=== PATIENT | male | born 1950 | race Caucasian/White ===

== ENCOUNTER 2016-09-17 10:06 | Outpatient (CLI) | payer BC, MEDICARE | END 2016-09-17 10:07 | disposition home or self-care (01) | DX: K21.9 Gastro-esophageal reflux disease without esophagitis (principal) ==

== ENCOUNTER 2016-09-17 10:13 | Outpatient (CLI) | payer MEDICARE, BC | END 2016-09-17 10:14 | disposition home or self-care (01) | DX: E78.5 Hyperlipidemia, unspecified (principal); Z79.899 Other long term (current) drug therapy; Z12.5 Encounter for screening for malignant neoplasm of prostate; K21.9 Gastro-esophageal reflux disease without esophagitis | CPT/HCPCS: 36415; 80053; 80061; 84443; 85025; G0103 ==

== ENCOUNTER 2016-09-29 11:00 | Outpatient (CLI) | payer MEDICARE, BC | END 2016-09-29 11:01 | disposition home or self-care (01) | DX: G47.8 Other sleep disorders (principal); R51 Headache; R06.83 Snoring; K21.9 Gastro-esophageal reflux disease without esophagitis | CPT/HCPCS: 99203; G0463 ==

== ENCOUNTER 2016-10-19 19:21 | Outpatient (CLI) | payer MEDICARE, BC | END 2016-10-19 19:22 | disposition home or self-care (01) | DX: G47.33 Obstructive sleep apnea (adult) (pediatric) (principal); G47.61 Periodic limb movement disorder; Z68.27 Body mass index [BMI] 27.0-27.9, adult ==

== ENCOUNTER 2016-10-28 11:25 | Outpatient (CLI) | payer MEDICARE, BC | END 2016-10-28 11:26 | disposition home or self-care (01) | DX: G47.33 Obstructive sleep apnea (adult) (pediatric) (principal) | CPT/HCPCS: 99213; G0463 ==

== ENCOUNTER 2016-12-12 08:00 | Outpatient (CLI) | payer MEDICARE, BC | END 2016-12-12 23:59 | DX: K58.9 Irritable bowel syndrome, unspecified (principal) ==

== ENCOUNTER 2017-01-05 08:11 | Outpatient (CLI) | payer MEDICARE, BC ==
[2017-01-05] MEDS ORDERED: IOPAMIDOL-300 50 ML VIAL PO ONE (09:30)
[2017-01-05] MEDS ORDERED: IOPAMIDOL-300 100 ML VIAL IVP ONE (09:47)
== END 2017-01-05 08:12 | disposition home or self-care (01) ==
DX: K57.32 Diverticulitis of large intestine without perforation or abscess without bleeding (principal)
CPT/HCPCS: 36415; 74177; 82565; 84520; Q9967

== ENCOUNTER 2017-06-29 11:00 | Outpatient (CLI) | payer MEDICARE, BC | END 2017-06-29 11:01 | disposition home or self-care (01) | LOC: LAB.R 11:00 | PROVIDERS: ATTEND Family Medicine | DX: R30.0 Dysuria (principal) | CPT/HCPCS: 87086 ==

== ENCOUNTER → 2017-07-27 | Outpatient (CLI) | payer MEDICARE, BC | LOC: LAB.WCP 08:00 | PROVIDERS: ATTEND Family Medicine | DX: R30.0 Dysuria (principal) | CPT/HCPCS: 87086 ==

== ENCOUNTER 2017-08-20 15:43 | Outpatient (CLI) | payer MEDICARE, BC ==
[2017-08-20 14:11] LABS: BASOPHILS % (AUTO) 0.5 %; EOSINOPHILS # (AUTO) 0.1 10^3/uL (0.0-0.7); EOSINOPHILS % (AUTO) 2.3 %; HCT - HEMATOCRIT 45.8 % (42.0-52.0); HGB - HEMOGLOBIN 15.4 g/dL (14.0-18.0); LYMPHOCYTES # (AUTO) 2.7 10^3/uL (1.5-3.5); LYMPHOCYTES % (AUTO) 41.7 %; MEAN CORPUSCULAR HEMOGLOBIN 30.2 pg (27.0-31.0); MEAN CORPUSCULAR HGB CONC 33.6 g/dL (32.0-36.0); MEAN CORPUSCULAR VOLUME 89.7 fL (80.0-94.0); MEAN PLATELET VOLUME 8.2 fL (7.4-11.4); MONOCYTES # (AUTO) 0.5 10^3/uL (0.0-1.0); MONOCYTES % (AUTO) 7.8 %; NEUTROPHILS # (AUTO) 3.1 10^3/uL (1.5-6.6); NEUTROPHILS % (AUTO) 47.7 %; NUCLEATED RED BLOOD CELLS AUTO 0.1 /100WBC; RED CELL DISTRIBUTION WIDTH 14.1 % (12.0-15.0); UNCORRECTED WHITE BLOOD COUNT 6.4 x10^3/uL; WHITE BLOOD COUNT 6.4 x10^3/uL (4.8-10.8)
[2017-08-20 14:43] LABS: CHOL/HDL RATIO 4.9 (<5.0); CHOLESTEROL 228 mg/dL; HDL CHOLESTEROL 47 mg/dL; LDL/HDL RATIO 3.3 (<3.6); TRIGLYCERIDES 120 mg/dL; VLDL CHOLESTEROL 24 mg/dL
== END 2017-08-20 15:44 | disposition home or self-care (01) ==
LOC: LAB.WCP 15:43
PROVIDERS: ATTEND Family Medicine
DX: E78.5 Hyperlipidemia, unspecified (principal); Z12.5 Encounter for screening for malignant neoplasm of prostate; R03.0 Elevated blood-pressure reading, without diagnosis of hypertension
CPT/HCPCS: 36415; 80061; 85025; G0103; 84153

== ENCOUNTER 2018-05-05 07:05 | Outpatient (CLI) | payer BC, MEDICARE ==
[2018-05-05 12:22] LABS: BUN - BLOOD UREA NITROGEN 25 mg/dL (6-20); CALCIUM 8.8 mg/dL (8.5-10.3); CARBON DIOXIDE - CO2 27 mmol/L (21-32); CHLORIDE 105 mmol/L (101-111); CHOL/HDL RATIO 5.8 (<5.0); CHOLESTEROL 213 mg/dL; CREATININE 1.1 mg/dL (0.6-1.2); GFR - MDRD 67 (>89); GLUCOSE 82 mg/dL (70-100); HDL CHOLESTEROL 37 mg/dL; LDL CHOLESTEROL,CALCULATED 133 mg/dL; LDL/HDL RATIO 3.6 (<3.6); SODIUM 139 mmol/L (135-145); VLDL CHOLESTEROL 43 mg/dL
== END 2018-05-05 07:06 | disposition home or self-care (01) ==
LOC: LAB.WCP 07:05
PROVIDERS: ATTEND Family Medicine
DX: R73.01 Impaired fasting glucose (principal); E78.5 Hyperlipidemia, unspecified; R03.0 Elevated blood-pressure reading, without diagnosis of hypertension
CPT/HCPCS: 36415; 80048; 80061; 83721

== ENCOUNTER 2018-05-17 11:29 | Outpatient (CLI) | payer MEDICARE, OTHER ==
[2018-05-17] MEDS ORDERED: IOPAMIDOL-300 100 ML VIAL ONE (11:58)
--- NOTE | 2018-05-17 13:49 | CT Report ---
Reason: R ILIAC ARTERY DILATION ON LIFE SCREENING Procedure Date: 05/17/2018 Accession Number: [id number] / [id number] Procedure: CT - Abdomen/Pelvis Angio CPT Code: FULL RESULT: EXAM: CT ANGIOGRAM ABDOMEN AND PELVIS WITH CONTRAST EXAM DATE: 05/17/2018 01:01 PM. CLINICAL HISTORY: R ILIAC ARTERY DILATION ON LIFE SCREENING. COMPARISONS: Abdomen pelvis CT 01/05/2017. TECHNIQUE: Routine helical CT angiogram imaging was performed through the abdomen and pelvis in the arterial phase. IV contrast: ISOVUE 300 100mL. Enteric contrast: No. Reconstructions: Coronal and sagittal. MIP coronal and sagittal. In accordance with CT protocol optimization, one or more of the following dose reduction techniques were utilized for this exam: automated exposure control, adjustment of mA and/or KV based on patient size, or use of iterative reconstructive technique. FINDINGS: Vasculature: The right common iliac artery measures up to 2.3 cm in diameter, series 4 image 148. Lung Bases: Right hilar lymph nodes measure up to 1.3 cm in short axis. Abdominal Solid Organs: Left renal cortical cysts measure up to 2.0 cm, previously 1.7 cm. The liver, spleen, pancreas, adrenal glands, gallbladder and kidneys appear otherwise normal in size and demonstrate no masses or abnormal enhancement. Peritoneal Cavity: no free fluid, free air, or acute inflammatory process. There are multiple colon diverticula without evidence of diverticulitis. Pelvic Organs: The bladder and visualized pelvic organs appear within normal limits. Bones: No bone lesions. 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 Follow-up is recommended. Right hilar lymph nodes are nonspecific. RADIA
[2018-05-17] MEDS ORDERED: IOPAMIDOL-300 100 ML VIAL IVP ONE (15:16)
[2018-05-17] MEDS ORDERED: IOPAMIDOL-300 50 ML VIAL PO ONE (15:16)
== END 2018-05-17 11:30 | disposition home or self-care (01) ==
LOC: DI 11:29
PROVIDERS: ATTEND Family Medicine
DX: R93.5 Abnormal findings on diagnostic imaging of other abdominal regions, including retroperitoneum (principal); I72.3 Aneurysm of iliac artery
CPT/HCPCS: 74174; Q9967

== ENCOUNTER 2018-07-21 10:33 | Emergency (ER) | payer MEDICARE, OTHER ==
[2018-07-21 11:04] LABS: HGB - HEMOGLOBIN 15.3 g/dL (14.0-18.0); MEAN CORPUSCULAR HEMOGLOBIN 30.7 pg (27.0-31.0); MEAN CORPUSCULAR HGB CONC 33.6 g/dL (32.0-36.0); MEAN CORPUSCULAR VOLUME 91.4 fL (80.0-94.0); MEAN PLATELET VOLUME 7.4 fL (7.4-11.4); RED BLOOD COUNT 4.99 10^6/uL (4.70-6.10); RED CELL DISTRIBUTION WIDTH 13.7 % (12.0-15.0); WHITE BLOOD COUNT 6.6 x10^3/uL (4.8-10.8)
[2018-07-21 11:15] LABS: ALBUMIN 4.3 g/dL (3.2-5.5); ALBUMIN/GLOBULIN RATIO 1.3 (1.0-2.2); CALCIUM 8.9 mg/dL (8.5-10.3); CREATININE 1.1 mg/dL (0.6-1.2); TOTAL PROTEIN 7.7 g/dL (6.7-8.2)
[2018-07-21 11:18] LABS: PT - PROTHROMBIN TIME 11.5 secs (9.9-12.6)
--- NOTE | 2018-07-21 12:48 | ED Physician Documentation ---
PD HPI GI BLEED - Stated complaint Stated Complaint: BLOOD IN STOOL - Chief complaint Chief Complaint: Cardiac - History obtained from History obtained from: Patient - History of Present Illness Timing - onset: Yesterday Timing - duration: Days (2) Timing - details: Abrupt onset, Still present Associated symptoms: BRBPR Contributing factors: Bad food. No: Sick contact Improved by: BM Similar symptoms before: Has not had sx before Recently seen: Clinic - Additional information Additional information: 67-year-old previously well male has developed bright red blood per rectum beginning yesterday morning. Denies any pain, he does have a prior history of hemorrhoids and has gone into the see his doctor about this. He was examined he was found to have no issue with hemorrhoids this morning and was sent to the emergency department for evaluation. The patient states that he did eat some lasagna that was provided by a neighbor and he felt that after that his stomach was a bit upset and he developed some soft stool. He did note the blood on top of the soft stool. He denies any fever or chills associated with this denies any lightheadedness or dizziness. Review of Systems Constitutional: denies: Fever Eyes: denies: Decreased vision Ears: denies: Ear pain Nose: denies: Congestion Throat: denies: Sore throat Cardiac: denies: Chest pain / pressure, Palpitations Respiratory: denies: Dyspnea, Cough GI: reports: Bloody / black stool. denies: Abdominal Pain, Nausea, Vomiting, Constipation, Diarrhea, Hematemesis : denies: Dysuria, Frequency PD PAST MEDICAL HISTORY - Past Medical History Cardiovascular: None Respiratory: None Endocrine/Autoimmune: None GI: GERD : None Psych: Claustrophobia Musculoskeletal: None Other Past Medical History: Myasthenia gravis - Past Surgical History Past Surgical History: Yes General: Colonoscopy - Present Medications Home Medications: Ambulatory Orders Medication Instructions Recorded Confirmed Prednisone 5 mg PO DAILY 10/22/15 07/13/17 Omeprazole [PriLOSEC] 20 mg PO DAILY 07/10/17 07/13/17 - Allergies Allergies/Adverse Reactions: Allergies Allergy/AdvReac Type Severity Reaction Status Date / Time indomethacin Allergy Mild Hives Verified 07/10/17 10:12 sulfamethoxazole Allergy Rash Verified 07/10/17 10:12 [From Bactrim] trimethoprim [From Bactrim] Allergy Rash Verified 07/10/17 10:12 - Social History Does the pt smoke?: No Smoking Status: Never smoker Does the pt drink ETOH?: No Does the pt have substance abuse?: No - Immunizations Immunizations are current?: Yes - POLST Patient has POLST: No PD ED PE NORMAL - Vitals Vital signs reviewed: Yes (hypertensive ) - General General: Alert and oriented X 3, No acute distress, Well developed/nourished - HEENT HEENT: Atraumatic, PERRL, EOMI - Neck Neck: Supple, no meningeal sign - Cardiac Cardiac: RRR, No murmur - Respiratory Respiratory: No respiratory distress, Clear bilaterally - Abdomen Abdomen: Soft, Non tender - Back Back: No CVA TTP, No spinal TTP - Derm Derm: Normal color, Warm and dry, No rash - Extremities Extremities: No deformity, No edema - Neuro Neuro: Alert and oriented X 3, under ground miner 2-12 intact, No motor deficit, No sensory deficit, Normal speech Eye Opening: Spontaneous Motor: Obeys Commands Verbal: Oriented GCS Score: 15 - Psych Psych: Normal mood, Normal affect Results - Vitals Vitals: Vital Signs - 24 hr 07/21/18 07/21/18 10:50 13:38 Temperature 36.8 C Heart Rate 73 74 Respiratory 18 18 Rate Blood Pressure 136/94 H 124/74 O2 Saturation 95 99 Oxygen O2 Source Room air - Labs Labs: Microbiology 07/21/18 12:54 Campylobacter Antigen Assay - Final Stool Laboratory Tests 07/21/18 07/21/18 07/21/18 10:55 10:55 10:55 WBC 6.6 RBC 4.99 Hgb 15.3 Hct 45.6 MCV 91.4 MCH 30.7 MCHC 33.6 RDW 13.7 Plt Count 234 MPV 7.4 PT INR APTT 28.0 Sodium 140 Potassium 3.8 Chloride 105 Carbon Dioxide 27 Anion Gap 8.0 BUN 16 Creatinine 1.1 Estimated GFR (MDRD) 67 L Glucose 104 H Calcium 8.9 Total Bilirubin 1.0 AST 21 ALT 22 Alkaline Phosphatase 57 Total Protein 7.7 Albumin 4.3 Globulin 3.4 Albumin/Globulin Ratio 1.3 Lipase 27 Blood Type Blood Type Recheck Antibody Screen 07/21/18 07/21/18 07/21/18 10:55 10:55 11:20 WBC RBC Hgb Hct MCV MCH MCHC RDW Plt Count MPV PT 11.5 INR 1.0 APTT Sodium Potassium Chloride Carbon Dioxide Anion Gap BUN Creatinine Estimated GFR (MDRD) Glucose Calcium Total Bilirubin AST ALT Alkaline Phosphatase Total Protein Albumin Globulin Albumin/Globulin Ratio Lipase Blood Type O POSITIVE Blood Type Recheck O POSITIVE Antibody Screen NEGATIVE PD MEDICAL DECISION MAKING - ED course Complexity details: reviewed results, re-evaluated patient, considered differential, d/w patient ED course: 67-year-old male with a soft stool and blood per rectum without evidence of hemorrhoids has no specific pain to palpation of the abdomen he has no fever he has normal white blood cell count and normal blood counts. He is able to produce a specimen for use and it is negative for campy and is being cultured. I discussed results with the patient and he feels well would like to wait out the results. Departure - Departure Disposition: 01 Home, Self Care Clinical Impression: Rectal bleeding Condition: Stable Instructions: ED Hematochezia Stable Follow-Up: Albaro Mcnamara MD [Primary Care Provider] -
[2018-07-21 13:40] VITALS: BP 124/74
== END 2018-07-21 15:40 | disposition home or self-care (01) ==
LOC: ED 10:33
DX: K62.5 Hemorrhage of anus and rectum (principal)
CPT/HCPCS: 80053; 83690; 85027; 85610; 85730; 86850; 86900; 86901; 87045; 87046; 99283

== ENCOUNTER 2019-05-03 07:43 | Outpatient (CLI) | payer MEDICARE, OTHER ==
[2019-05-03 12:39] LABS: BASOPHILS % (AUTO) 0.4 %; EOSINOPHILS # (AUTO) 0.2 10^3/uL (0.0-0.7); EOSINOPHILS % (AUTO) 2.3 %; HGB - HEMOGLOBIN 15.5 g/dL (14.0-18.0); LYMPHOCYTES # (AUTO) 2.3 10^3/uL (1.5-3.5); LYMPHOCYTES % (AUTO) 31.7 %; MEAN CORPUSCULAR HEMOGLOBIN 30.9 pg (27.0-31.0); MEAN CORPUSCULAR HGB CONC 32.4 g/dL (32.0-36.0); MEAN CORPUSCULAR VOLUME 95.4 fL (80.0-94.0); MEAN PLATELET VOLUME 9.9 fL (7.4-11.4); MONOCYTES # (AUTO) 0.6 10^3/uL (0.0-1.0); MONOCYTES % (AUTO) 7.9 %; NEUTROPHILS # (AUTO) 4.2 10^3/uL (1.5-6.6); NEUTROPHILS % (AUTO) 57.4 %; PLT - PLATELET COUNT 246 10^3/uL (130-450); RED BLOOD COUNT 5.02 10^6/uL (4.70-6.10); RED CELL DISTRIBUTION WIDTH 13.2 % (12.0-15.0); WHITE BLOOD COUNT 7.3 x10^3/uL (4.8-10.8)
[2019-05-03 13:06] LABS: ALBUMIN/GLOBULIN RATIO 1.3 (1.0-2.2); ALKALINE PHOSPHATASE 51 IU/L (42-121); ALT ALANINE AMINOTRANSFERASE 27 IU/L (10-60); AST ASPARTATE AMINOTRANSFERASE 24 IU/L (10-42); BUN - BLOOD UREA NITROGEN 21 mg/dL (6-20); CALCIUM 8.8 mg/dL (8.5-10.3); CARBON DIOXIDE - CO2 29 mmol/L (21-32); CHLORIDE 108 mmol/L (101-111); CHOL/HDL RATIO 5.1 (<5.0); CHOLESTEROL 220 mg/dL; GFR - MDRD 75 (>89); GLUCOSE 99 mg/dL (70-100); HDL CHOLESTEROL 43 mg/dL; LDL CHOLESTEROL,CALCULATED 157 mg/dL; LDL/HDL RATIO 3.7 (<3.6); SODIUM 142 mmol/L (135-145); TOTAL PROTEIN 7.2 g/dL (6.7-8.2); VLDL CHOLESTEROL 20 mg/dL
== END 2019-05-03 23:59 | disposition home or self-care (01) ==
LOC: LAB.WCP 07:43
PROVIDERS: ATTEND Family Medicine
DX: R73.01 Impaired fasting glucose (principal); E78.5 Hyperlipidemia, unspecified; Z12.5 Encounter for screening for malignant neoplasm of prostate; R00.2 Palpitations; K21.9 Gastro-esophageal reflux disease without esophagitis
CPT/HCPCS: 36415; 80061; G0103; 80053; 83721; 84153; 84443; 85025

== ENCOUNTER 2019-06-23 14:26 | Outpatient (CLI) | payer MEDICARE, OTHER | END 2019-06-23 14:27 | disposition home or self-care (01) | LOC: RT 14:26 | PROVIDERS: ATTEND Internal Medicine Cardiovascular Disease | DX: R00.2 Palpitations (principal) | CPT/HCPCS: 93005 ==

== ENCOUNTER 2020-05-28 07:11 | Outpatient (CLI) | payer MEDICARE, OTHER ==
[2020-05-28 12:07] LABS: BASOPHILS # (AUTO) 0.1 10^3/uL (0.0-0.1); BASOPHILS % (AUTO) 0.8 %; EOSINOPHILS # (AUTO) 0.2 10^3/uL (0.0-0.7); EOSINOPHILS % (AUTO) 2.5 %; HGB - HEMOGLOBIN 15.7 g/dL (14.0-18.0); LYMPHOCYTES # (AUTO) 2.8 10^3/uL (1.5-3.5); LYMPHOCYTES % (AUTO) 34.9 %; MEAN CORPUSCULAR HEMOGLOBIN 30.3 pg (27.0-31.0); MEAN CORPUSCULAR HGB CONC 31.7 g/dL (32.0-36.0); MEAN CORPUSCULAR VOLUME 95.6 fL (80.0-94.0); MEAN PLATELET VOLUME 9.9 fL (7.4-11.4); MONOCYTES # (AUTO) 0.7 10^3/uL (0.0-1.0); MONOCYTES % (AUTO) 8.2 %; NEUTROPHILS # (AUTO) 4.2 10^3/uL (1.5-6.6); NEUTROPHILS % (AUTO) 53.2 %; PLT - PLATELET COUNT 238 10^3/uL (130-450); RED BLOOD COUNT 5.18 10^6/uL (4.70-6.10); RED CELL DISTRIBUTION WIDTH 13.2 % (12.0-15.0); WHITE BLOOD COUNT 7.9 x10^3/uL (4.8-10.8)
[2020-05-28 12:21] LABS: ALBUMIN 4.2 g/dL (3.2-5.5); ALBUMIN/GLOBULIN RATIO 1.5 (1.0-2.2); ALKALINE PHOSPHATASE 59 IU/L (42-121); ALT ALANINE AMINOTRANSFERASE 21 IU/L (10-60); AST ASPARTATE AMINOTRANSFERASE 18 IU/L (10-42); BUN - BLOOD UREA NITROGEN 26 mg/dL (6-20); CALCIUM 8.9 mg/dL (8.5-10.3); CARBON DIOXIDE - CO2 26 mmol/L (21-32); CHLORIDE 108 mmol/L (101-111); CHOL/HDL RATIO 4.7 (<5.0); CHOLESTEROL 206 mg/dL; CREATININE 1.1 mg/dL (0.6-1.2); GLUCOSE 102 mg/dL (70-100); HDL CHOLESTEROL 44 mg/dL; LDL CHOLESTEROL,CALCULATED 134 mg/dL; SODIUM 142 mmol/L (135-145); VLDL CHOLESTEROL 28 mg/dL
== END 2020-05-28 23:59 | disposition home or self-care (01) ==
LOC: LAB.WCP 07:11
PROVIDERS: ATTEND Family Medicine
DX: G70.00 Myasthenia gravis without (acute) exacerbation (principal); R00.2 Palpitations; E78.5 Hyperlipidemia, unspecified; Z12.5 Encounter for screening for malignant neoplasm of prostate
CPT/HCPCS: 36415; 80053; 80061; 84443; 85025; G0103; 83721; 84153

== ENCOUNTER 2021-06-17 09:21 | Outpatient (CLI) | payer MEDICARE, OTHER ==
[2021-06-17 11:39] LABS: BASOPHILS # (AUTO) 0.1 10^3/uL (0.0-0.1); BASOPHILS % (AUTO) 0.8 %; EOSINOPHILS # (AUTO) 0.3 10^3/uL (0.0-0.7); EOSINOPHILS % (AUTO) 4.1 %; HCT - HEMATOCRIT 49.4 % (42.0-52.0); HGB - HEMOGLOBIN 15.8 g/dL (14.0-18.0); LYMPHOCYTES # (AUTO) 2.3 10^3/uL (1.5-3.5); LYMPHOCYTES % (AUTO) 30.6 %; MEAN CORPUSCULAR HEMOGLOBIN 30.2 pg (27.0-31.0); MEAN CORPUSCULAR VOLUME 94.5 fL (80.0-94.0); MEAN PLATELET VOLUME 9.8 fL (7.4-11.4); MONOCYTES # (AUTO) 0.5 10^3/uL (0.0-1.0); MONOCYTES % (AUTO) 6.6 %; NEUTROPHILS # (AUTO) 4.3 10^3/uL (1.5-6.6); NEUTROPHILS % (AUTO) 57.8 %; PLT - PLATELET COUNT 260 10^3/uL (130-450); RED BLOOD COUNT 5.23 10^6/uL (4.70-6.10); RED CELL DISTRIBUTION WIDTH 13.1 % (12.0-15.0); WHITE BLOOD COUNT 7.4 x10^3/uL (4.8-10.8)
[2021-06-17 12:01] LABS: ESTIMATED AVERAGE GLUCOSE 105 mg/dL (70-100); HEMOGLOBIN A1c% 5.3 % (4.27-6.07)
[2021-06-17 12:04] LABS: ALBUMIN 4.3 g/dL (3.2-5.5); ALBUMIN/GLOBULIN RATIO 1.4 (1.0-2.2); ALKALINE PHOSPHATASE 61 IU/L (42-121); ALT ALANINE AMINOTRANSFERASE 25 IU/L (10-60); AST ASPARTATE AMINOTRANSFERASE 20 IU/L (10-42); BILIRUBIN,TOTAL 0.9 mg/dL (0.2-1.0); BUN - BLOOD UREA NITROGEN 17 mg/dL (6-20); CALCIUM 9.2 mg/dL (8.5-10.3); CARBON DIOXIDE - CO2 28 mmol/L (21-32); CHLORIDE 103 mmol/L (101-111); CHOL/HDL RATIO 5.4 (<5.0); CHOLESTEROL 200 mg/dL; CREATININE 1.2 mg/dL (0.6-1.2); GFR - MDRD 60 (>89); GLUCOSE 101 mg/dL (70-100); HDL CHOLESTEROL 37 mg/dL; LDL CHOLESTEROL,CALCULATED 128 mg/dL; LDL/HDL RATIO 3.5 (<3.6); POTASSIUM 4.1 mmol/L (3.5-5.0); SODIUM 140 mmol/L (135-145); TOTAL PROTEIN 7.4 g/dL (6.7-8.2); TRIGLYCERIDES 175 mg/dL; VLDL CHOLESTEROL 35 mg/dL
[2021-06-17 12:14] LABS: THYROID STIMULATING HORMONE 1.1 uIU/mL (0.34-5.60)
== END 2021-06-17 23:59 | disposition home or self-care (01) ==
LOC: LAB.WCP 09:21
PROVIDERS: ATTEND Family Medicine
DX: E78.5 Hyperlipidemia, unspecified (principal); Z12.5 Encounter for screening for malignant neoplasm of prostate; R73.01 Impaired fasting glucose; K58.9 Irritable bowel syndrome, unspecified; K21.9 Gastro-esophageal reflux disease without esophagitis; G47.30 Sleep apnea, unspecified; G70.00 Myasthenia gravis without (acute) exacerbation
CPT/HCPCS: 36415; 80053; 80061; 83036; 84443; 85025; G0103; 83721; 84153

== ENCOUNTER 2021-08-13 11:27 | Observation (INO) | payer MEDICARE, OTHER ==
--- NOTE | 2021-08-13 12:37 | ED Physician Documentation ---
PD HPI FOCAL NEURO - Stated complaint Stated Complaint: LT EYE SAG/SLURRED SPEACH - Chief complaint Chief Complaint: Neuro - History obtained from History obtained from: Patient - History of Present Illness Timing - onset: Yesterday Timing - duration: Minutes (20) Timing - details: Abrupt onset Associated symptoms: No: Headache, Nausea / vomiting, Seizure, Syncope, Fall, Head injury, Chest pain, Neck pain, Back pain, Fever Baseline status: positive: A&OX3, ambulatory, indep Similar symptoms before: Diagnosis (Myasthenia gravis) - Additional information Additional information: Patient is a 71-year-old male who comes in to the emergency department stating that last night he had about 20 minutes of difficulty forming words. He states he is back to normal now. Today he felt like his left eyelid was drooping. This is similar to the past times that he has had myasthenia gravis. Had been on prednisone low-dose in the past for this. Not currently on it. The eyelid droop is now resolved. That lasted about 15 minutes. He had no other focal neurological issues. No numbness, weakness, tingling. No facial deformities. No difficulty walking. Patient is currently asymptomatic. No new medications or illnesses. Review of Systems Ten Systems: 10 systems reviewed and negative Constitutional: denies: Fever, Chills Eyes: denies: Loss of vision, Decreased vision, Photophobia, Irritation Ears: denies: Loss of hearing, Ear pain Nose: denies: Rhinorrhea / runny nose, Congestion Throat: denies: Sore throat Cardiac: denies: Chest pain / pressure, Palpitations Respiratory: denies: Dyspnea, Cough, Wheezing GI: denies: Abdominal Pain, Nausea, Vomiting, Diarrhea Skin: denies: Rash Musculoskeletal: denies: Neck pain, Back pain Neurologic: denies: Focal weakness, Numbness, Confused, Headache PD PAST MEDICAL HISTORY - Past Medical History Past Medical History: Yes Cardiovascular: None Respiratory: None Endocrine/Autoimmune: None GI: GERD : None Psych: Claustrophobia Musculoskeletal: None - Past Surgical History Past Surgical History: Yes General: Colonoscopy - Present Medications Home Medications: Ambulatory Orders Medication Instructions Recorded Confirmed predniSONE [Prednisone] 5 mg PO DAILY 10/22/15 07/13/17 Omeprazole [PriLOSEC] 20 mg PO DAILY 07/10/17 07/13/17 - Allergies Allergies/Adverse Reactions: Allergies Allergy/AdvReac Type Severity Reaction Status Date / Time indomethacin Allergy Mild Hives Verified 08/13/21 11:43 sulfamethoxazole Allergy Rash Verified 08/13/21 11:43 [From Bactrim] trimethoprim [From Bactrim] Allergy Rash Verified 08/13/21 11:43 - Social History Does the pt smoke?: No Smoking Status: Never smoker Does the pt drink ETOH?: No Does the pt have substance abuse?: No - Immunizations Immunizations are current?: Yes - POLST Patient has POLST: No PD ED PE NORMAL - Vitals Vital signs reviewed: Yes - General General: Alert and oriented X 3, No acute distress - HEENT HEENT: Atraumatic, PERRL, EOMI, Ears normal, Moist mucous membranes, Pharynx benign, Other (Facial exam performed with the patient looking in the mirror. Confirms that his facial movements are normal) - Neck Neck: Supple, no meningeal sign - Cardiac Cardiac: RRR, Strong equal pulses - Respiratory Respiratory: No respiratory distress, Clear bilaterally - Abdomen Abdomen: Soft, Non tender, Non distended - Back Back: No spinal TTP - Derm Derm: Warm and dry - Extremities Extremities: No edema - Neuro Neuro: Alert and oriented X 3, visualization developer 2-12 intact, No motor deficit, No sensory deficit, Normal speech Eye Opening: Spontaneous Motor: Obeys Commands Verbal: Oriented GCS Score: 15 - Psych Psych: Normal mood, Normal affect NIHSS - Time Time: 12:35 - Level of Consciousness Level of consciousness: (0) Alert, Keenly responsive LOC Questions: (0) Answers both Q's correct LOC Commands: (0) Performs both correctly - Gaze Best Gaze: (0) Normal - Visual Visual: (0) No loss - Facial Palsy Facial Palsy: (0) Normal, symmetrical movement - Motor Arms (both separate) Motor Arm (right): (0) No drift Motor Arm (left): (0) No drift - Motor Legs (both separate) Motor Leg (right): (0) No drift Motor Leg (left): (0) No drift - Limb Ataxia Limb Ataxia: (0) Absent - Sensory Sensory: (0) Normal - Best Language Best Language: (0) No aphasia - Dysarthria Dysarthria: (0) Normal - Extinction and Inattention (formally neg Extinction and inattention: (0) No abnormality - Total Score/Results Total Score/Result: 0 Results - Vitals Vitals: Vital Signs - 24 hr 08/13/21 11:37 Temperature 36.3 C L Heart Rate 78 Respiratory 17 Rate Blood Pressure 148/90 H O2 Saturation 99 Oxygen O2 Source Room air - EKG (time done) 1238 Rate: Rate (enter#) (68) Rhythm: NSR [place]: Normal Intervals: Normal [place] QRS: Normal Ischemia: Normal ST segments - Labs Labs: Laboratory Tests 08/13/21 08/13/21 12:48 12:48 WBC 7.5 RBC 5.01 Hgb 15.4 Hct 46.4 MCV 92.6 MCH 30.7 MCHC 33.2 RDW 12.9 Plt Count 224 MPV 9.1 Neut # (Auto) 5.3 Lymph # (Auto) 1.4 L [place] # (Auto) 0.5 Eos # (Auto) 0.2 Baso # (Auto) 0.1 Absolute Nucleated RBC 0.00 Nucleated RBC % 0.0 Sodium 138 Potassium 4.0 Chloride 103 Carbon Dioxide 26 Anion Gap 9.0 BUN 17 Creatinine 1.1 Estimated GFR (MDRD) 66 L Glucose 87 Calcium 9.0 Total Bilirubin 0.8 AST 19 ALT 26 Alkaline Phosphatase 62 Total Protein 7.1 Albumin 4.1 Globulin 3.0 Albumin/Globulin Ratio 1.4 Lipase 33 - Rads (name of study) CT angio head Radiology: Final report received, EMP read contemporaneously, See rad report (No acute abnormality) CT angio neck Radiology: Final report received, EMP read contemporaneously, See rad report (No acute abnormality) PD MEDICAL DECISION MAKING - ED course Complexity details: reviewed results, re-evaluated patient, considered differential, d/w patient, d/w organizational consultant ED course: Patient is a 71-year-old male with difficulty forming words that lasted about 20 minutes last night. Concern for TIA. Negative CT angiogram head and neck. ABCD2 score is 4. Asymptomatic here. Given aspirin. We will place the patient in observation for the remainder of the TIA work-up. ABCD 2 score puts him as a moderate risk patient. Discussed the case with Dr. Arias, hospitalist accepts This document was made in part using voice recognition software. While efforts are made to proofread this document, sound alike and grammatical errors may occur. Departure - Departure Disposition: ED Place in Observation Clinical Impression: TIA (transient ischemic attack) Condition: Stable Discharge Date/Time: 08/13/21 15:50
[2021-08-13] MEDS ORDERED: IOPAMIDOL-300 100 ML VIAL ONE (12:44)
[2021-08-13 12:52] LABS: BASOPHILS # (AUTO) 0.1 10^3/uL (0.0-0.1); BASOPHILS % (AUTO) 0.7 %; EOSINOPHILS # (AUTO) 0.2 10^3/uL (0.0-0.7); EOSINOPHILS % (AUTO) 2.8 %; HCT - HEMATOCRIT 46.4 % (42.0-52.0); HGB - HEMOGLOBIN 15.4 g/dL (14.0-18.0); LYMPHOCYTES # (AUTO) 1.4 10^3/uL (1.5-3.5); MEAN CORPUSCULAR HEMOGLOBIN 30.7 pg (27.0-31.0); MEAN CORPUSCULAR HGB CONC 33.2 g/dL (32.0-36.0); MEAN CORPUSCULAR VOLUME 92.6 fL (80.0-94.0); MEAN PLATELET VOLUME 9.1 fL (7.4-11.4); MONOCYTES # (AUTO) 0.5 10^3/uL (0.0-1.0); MONOCYTES % (AUTO) 6.9 %; NEUTROPHILS # (AUTO) 5.3 10^3/uL (1.5-6.6); NEUTROPHILS % (AUTO) 70.2 %; PLT - PLATELET COUNT 224 10^3/uL (130-450); RED BLOOD COUNT 5.01 10^6/uL (4.70-6.10); RED CELL DISTRIBUTION WIDTH 12.9 % (12.0-15.0); WHITE BLOOD COUNT 7.5 x10^3/uL (4.8-10.8)
[2021-08-13 13:13] LABS: ALBUMIN 4.1 g/dL (3.2-5.5); ALBUMIN/GLOBULIN RATIO 1.4 (1.0-2.2); BILIRUBIN,TOTAL 0.8 mg/dL (0.2-1.0); CREATININE 1.1 mg/dL (0.6-1.2); TOTAL PROTEIN 7.1 g/dL (6.7-8.2)
--- NOTE | 2021-08-13 14:11 | CT Report ---
PROCEDURE: ANGIO NECK W INDICATIONS: L sided facial droop, speech difficulties CONTRAST: IV CONTRAST: Optiray 320 ml: 80 PO CONTRAST: *NO PO CONTRAST TECHNIQUE: After the administration of intravenous contrast, 1.5 mm axial sections acquired from the aortic arch to the [place] of [place]. Coronal 3-D maximum intensity projection (MIP) and/or volume rendering ref ormats were then performed. For radiation dose reduction, the following was used: automated exposur e control, adjustment of mA and/or kV according to patient size. COMPARISON: Correlation is made with the accompanying head CT angiogram, 08/13/2021. FINDINGS: Image quality: Excellent. Carotid system: The great vessels demonstrate a conventional anatomy as they arise from the aortic a rch. The origins of the common carotid arteries appear patent. The common carotid arteries demonstr ate normal calibers and courses. The bifurcation regions appear normal bilaterally. The internal ca rotid arteries demonstrate normal caliber and course. Posterior circulation: The origins of the vertebral arteries appear patent. The more superior porti ons of the vertebral arteries demonstrate normal course and caliber. They join to form a normal appe aring basilar artery. The left vertebral artery is dominant to the right. Soft tissues: Visualized neck soft tissues demonstrate no suspicious abnormalities. The thyroid is normal in size and there are no incidental findings. Bones: No suspicious bony lesions. Visualized cervical spine appears normally aligned. Moderate c ervical spine degenerative changes are seen. IMPRESSION: No hemodynamically significant stenosis can be seen within the arteries of the neck. The estimate of stenosis included in the report of the imaging study was calculated using the NASCET method Reviewed by: Mark Jackson MD on 08/13/2021 1:10 PM [place] Approved by: Mark Jackson MD on 08/13/2021 1:10 PM [facility] Station ID: [id number]
--- NOTE | 2021-08-13 14:14 | CT Report ---
PROCEDURE: ANGIO HEAD W/WO INDICATIONS: L sided facial droop, speech difficulties CONTRAST: IV CONTRAST: Optiray 320 ml: 80 PO CONTRAST: *NO PO CONTRAST TECHNIQUE: Precontrast 4.5 mm thick angled axial sections acquired from the foramen magnum to the vertex. Afte r the administration of intravenous contrast, 1 mm thick sections acquired through the [place] of [place] is. Postcontrast 4.5 mm thick sections then re-acquired from the foramen magnum to the vertex. 3-di mensional [id number] (MIP) and/or volume rendering reformats were acquired of the c entral intracranial vasculature. For radiation dose reduction, the following was used: automated ex posure control, adjustment of mA and/or kV according to patient size. COMPARISON: Correlation is made with the accompanying neck CT angiogram, 08/13/2021. Correlation is a lso made with the prior brain MRI, 10/06/2013. FINDINGS: Image quality: Excellent. Anterior circulation: Intracranial internal carotid arteries are normal in size and flow. The flow within the paired anterior cerebral arteries is normal and symmetric. The flow within the middle cer ebral arteries is normal and symmetric. The anterior communicating artery is seen. No aneurysms are seen. Posterior circulation: Visualized portions of the vertebral arteries demonstrate normal caliber, and join to form a normal appearing basilar artery. The left vertebral artery is dominant to the right. Flow within the posterior cerebral arteries is normal and symmetric. No aneurysms are seen. CSF spaces: Ventricles are normal in size and shape. Basal cisterns are patent. No extra-axial flu id collections. Brain: No midline shift. No intracranial bleeds or masses. Philippe-white matter interface appears int act. Skull and face: Calvarium and facial bones appear intact, without suspicious lesions. Sinuses: Mild mucosal thickening is seen within the right maxillary sinus and the ethmoid air cells, with milder mucosal thickening seen elsewhere. No significant abnormal fluid can be seen within the m astoid air cells or within the middle ear cavities. IMPRESSION: No significant intracranial abnormality is seen. No intracranial hemorrhage is seen. No significant intracranial arterial abnormalities are seen. Reviewed by: Mark Jackson MD on 08/13/2021 1:12 PM [facility] Approved by: Mark Jackson MD on 08/13/2021 1:12 PM [facility] Station ID: [id number]
[2021-08-13] MEDS ORDERED: ASPIRIN CHEW 81 MG TABLET PO STA (14:33)
[2021-08-13] MEDS ORDERED: ONDANSETRON ODT 4 MG TABLET TL PRN (15:09)
[2021-08-13] MEDS ORDERED: ACETAMINOPHEN 325 MG TABLET PO PRN (15:09)
[2021-08-13] MEDS ORDERED: ONDANSETRON 4 MG/2 ML VIAL IVP PRN (15:09)
[2021-08-13] MEDS ORDERED: SODIUM CHLORIDE FLUSH 0.9% 10 ML SYRINGE IVP PRN (15:09)
[2021-08-13] MEDS ORDERED: oxyCODONE 5 MG TABLET PO PRN (15:09)
[2021-08-13] MEDS ORDERED: ATORVASTATIN 40 MG TABLET PO STA (15:17)
--- NOTE | 2021-08-13 15:45 | HISTORY & PHYSICAL EXAMINATION ---
Chief Complaint - Chief Complaint Chief Complaint: Focal neuro deficit History of Present Illness - Admitted From Admitted From:: Home - History of Present Illness HPI Comment/Other: Antelmo is a 71 year old male with a history of hyperlipidemia and stable common iliac artery aneurysm who presents with focal neuro deficit and is being admitted for TIA observation. Last night he experienced roughly 20 minutes of verbal apraxia, which has since resolved. He also experienced what he described as eyelid drooping today, but this has also since resolved. He is currently asymptomatic. He had a bout of palpitations in 2007 in which a holter monitor study was performed that was essentially normal with occasional PVCs and PACs. He quit smoking cigarettes in 2016. His only risk factors for stroke are male gender and advanced age. His ABCD score was 4 in the ED, indicating a moderate risk for stroke. He also has a history of ocular myasthenia gravis, which was in remission after completing steroid therapy with prednisone. He is currently not taking Prednisone. His MONTY aneurysm was last evaluated via ultrasound in 07/2020, which showed no change since prior ultrasound. It is currently stable without symptoms. His GERD is currently well controlled on daily omeprazole. Could be attributed to his longstanding history of anxiety and insomnia. History - Past Medical History Cardiovascular: reports: High cholesterol, Other (Common iliac artery aneurysm ) Respiratory: reports: None Neuro: reports: Other (Ocular myasthenia gravis, Guillane-Wilmar Syndrome, ) Endocrine/Autoimmune: reports: None GI: reports: GERD, GI bleed (Bright red blood per rectum ), Colon polyps, Other (Diverticulosis) : reports: Other (Microscopic hematuria ) HEENT: reports: Chronic hearing loss, Other (Cataracts) Psych: reports: Anxiety, Claustrophobia, Other (Insomnia) Musculoskeletal: reports: Osteoarthritis MRSA Hx?: No Other Past Medical History: Positional obstructive sleep apnea - Past Surgical History General: reports: Colonoscopy Ortho: reports: Shoulder arthroplasty - Family & Social History Family History: Mother: (Dad in his 80s from neuro disease. Had hx of diabetes, hypertension and hyperlipidemia. Mother of old age in mid- 80s.), Father: , Sister: , Cancer (2 older sisters who have passed due to cancer) Family History Comment/Other: 1 adult son who lives in [facility] and works for the . 2 granddaughters who are healthy and living in [place]. Living arrangement: At home Living Situation: With spouse/s.o. Social History Notes: Quit smoking tobacco in 2016. No alcohol use. Occassional CBD use but no use currently. 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 - Substance History Use: Uses substance without health or social issues: Other (Quit smoking tobacco in 2016) - POLST Patient has POLST: No Meds/Allgy - Home Medications Home Medications: Ambulatory Orders Medication Instructions Recorded Confirmed predniSONE [Prednisone] 5 mg PO DAILY 10/22/15 07/13/17 Omeprazole [PriLOSEC] 20 mg PO DAILY 07/10/17 07/13/17 - Allergies Allergies/Adverse Reactions: Allergies Allergy/AdvReac Type Severity Reaction Status Date / Time indomethacin Allergy Mild Hives Verified 08/13/21 11:43 sulfamethoxazole Allergy Rash Verified 08/13/21 11:43 [From Bactrim] trimethoprim [From Bactrim] Allergy Rash Verified 08/13/21 11:43 Review of Systems - Constitutional Constitutional: denies: Fatigue, Fever, Chills, Weakness - Eyes Eyes: denies: Pain, Blurred vision, Vision loss, Dipolpia - Ears, Nose & Throat Ears, Nose & Throat: reports: Hearing loss, Hearing aids, Tinnitus, Nasal congestion. denies: Ear pain, Sore throat - Cardiovascular Cariovascular: denies: Palpitations, Chest pain, Syncope, Exertional dyspnea - Respiratory Respiratory: reports: Cough (Related to his chronic sinusitis). denies: Wheezing, Hemoptysis - Gastrointestinal Gastrointestinal: reports: Reflux/heartburn. denies: Abdominal pain, Constipation, Diarrhea, Black stools - Genitourinary Genitourinary: reports: Frequency, Urgency. denies: Dysuria, Hematuria - Musculoskeletal Musculoskeletal: denies: Muscle pain - Integumentary Integumentary: denies: Rash, Lesions - Neurological Neurological: denies: General weakness, Focal weakness, Headache, Numbness - Psychiatric Psychiatric: reports: Anxiety - All Other Systems All Other Systems: reports: Reviewed and negative Prior Level of Functionality: Lives independently with in their home. Ambulates without assistance. Full functionality. Exam - Vital Signs Reviewed Vital Signs: Yes Vital Signs: Vital Signs x48h Temp Pulse Resp BP Pulse Ox 08/13/21 11:37 36.3 C L 78 17 148/90 H 99 - Physical Exam General Appearance: positive: No acute distress, Alert Eyes Bilateral: positive: PERRL, EOMI ENT: positive: Pharynx nml, Dry mucous membranes Neck: positive: Nml inspection, Thyroid nml, No JVD. negative: Lymphadenopathy (R), Lymphadenopathy (L) Respiratory: positive: Chest non-tender, No respiratory distress, Breath sounds nml Cardiovascular: positive: Regular rate & rhythm Abdomen: positive: Non-tender, No organomegaly Skin: positive: Color nml, No rash Extremities: positive: Non-tender, Nml appearance Neurologic/Psychiatric: positive: Oriented x3, CN's nml (2-12), Motor nml, Sensation nml Conclusion/Plan - Problem List (1) TIA (transient ischemic attack) Conclusion/Plan: 71 year old male with history of hyperlipidemia and MONTY aneurysm who presents to the ED with a 20 minute period of verbal apraxia last night. This has since resolved as did the eyelid drooping, which he states he experienced briefly today. He currently does not have any clinical symptoms. Labs are WNL. Head CT and CTA were normal. MRI is also normal. He should also obtain an echo to rule out cardiac structural abnormalities that may increase his risk for embolic stroke, which is primary care provider will order and coordinate. IV fluids not currently needed as patient's vitals are stable and there are no abnormalities on labs. Will start him on atorvastatin and single antiplatelet therapy. It is likely this is not a true TIA and instead an exacerbation of his previously diagnosed ocular myasthenia gravis. Given this workup with normal results, he will be discharged tonight. (2) Ocular myasthenia gravis Conclusion/Plan: Patient was diagnosed with ocular myasthenia gravis in 2013 and was treated with oral prednisone for almost 7 years. He completed a steroid taper and has been completely off prednisone for 6 months. Given that all imaging and labs are normal, it is likely his verbal apraxia was due to an exacerbation of his ocular myasthenia gravis and not a TIA. We recommend he follow up with his neurologist to discuss appropriate management. - Lab Results Fish Bones: 08/13/21 12:48 08/13/21 12:48 - Diagnostic Imaging Results Diagnostic Imaging Results: positive: Final report reviewed (CT, CTA, and MRI normal)
[2021-08-13] MEDS ORDERED: IOPAMIDOL-300 100 ML VIAL IVP ONE (16:44)
[2021-08-13] MEDS ORDERED: SODIUM CHLORIDE FLUSH 0.9% 10 ML SYRINGE IVP SCH (17:00)
[2021-08-13 17:10] LABS: B. PARAPERTUSSIS- RESP PCR PAN NOT DETECTED; B. PERTUSSIS- RESP PCR PANEL NOT DETECTED; C. PNEUMONIAE- RESP PCR PANEL NOT DETECTED; CORONAVIRUS 229E-RESP PCR NOT DETECTED; CORONAVIRUS HKU1-RESP PCR NOT DETECTED; CORONAVIRUS NL63-RESP PCR NOT DETECTED; CORONAVIRUS OC43-RESP PCR NOT DETECTED; HUMAN METAPNEUMOVIRUS NOT DETECTED; INFLUENZA A- RESP PCR PANEL NOT DETECTED; INFLUENZA B - RESP PCR PANEL NOT DETECTED; M. PNEUMONIAE- RESP PCR PANEL NOT DETECTED; PARAINFLUENZA VIRUS 1 NOT DETECTED; PARAINFLUENZA VIRUS 2 NOT DETECTED; PARAINFLUENZA VIRUS 3 NOT DETECTED; PARAINFLUENZA VIRUS 4 NOT DETECTED; RHINOVIRUS/ENTEROVIRUS NOT DETECTED; RSV- RESP PCR PANEL NOT DETECTED; SARS-CoV-2 -RESP PCR PANEL NOT DETECTED
--- NOTE | 2021-08-13 17:20 | MRI Report ---
PROCEDURE: Brain W/O INDICATIONS: verbal apraxia TECHNIQUE: Noncontrast axial T1 spin echo, axial T2 fast spin echo, sagittal and axial FLAIR, coronal T2 fast sp in echo, axial gradient echo, axial diffusion and ADC through the brain. COMPARISON: Prior brain MRI, 10/06/2013. Correlation is made with the accompanying head and neck CT an giograms. FINDINGS: Image quality: Excellent. CSF Spaces: Basal cisterns are patent. No extra-axial fluid collections. Ventricles are normal in size and shape. Brain: No intracranial masses or hemorrhage. Philippe/white matter interface is normal. Brainstem appe ars normal. Diffusion-weighted images demonstrate no acute ischemic insult. No chronic ischemic ins ults. Normal intravascular flow voids are present. Age-appropriate brain parenchymal volume loss an d chronic small vessel ischemic change can be seen. Skull and face: Calvarium has normal marrow signal. Orbits appear normal. Sinuses: There is at least moderate mucosal thickening seen involving the right maxillary sinus. With in the anterior left maxillary sinus, a mucous retention cyst is seen. Moderate mucosal thickening is seen within the ethmoid air cells. No significant abnormal fluid can be seen within the mastoid air cells or within the middle ear cavities. IMPRESSION: No findings of acute or subacute infarction are seen. Age-appropriate brain parenchymal volume loss and chronic small vessel ischemic change can be seen. Paranasal sinus disease is noted, which is most prominent within the right maxillary sinus. Reviewed by: Mark Jackson MD on 08/13/2021 4:19 PM [place] Approved by: Mark Jackson MD on 08/13/2021 4:19 PM [facility] Station ID: [id number]
--- NOTE | 2021-08-13 18:19 | Discharge Plan ---
Discharge Plan Problem Reviewed?: Yes Disposition: Home, Self Care Condition: Stable Diet: Cardiac Activity Restrictions: Activity as Tolerated Shower Restrictions: No Driving Restrictions: No Health Concerns: You presented to our hospital with speech problems that lasted 20 minutes the night before, and left eyelid droop. The left eyelid droop is not new since you have myasthenia gravis that involves the muscles of your eyes. You have recently been tapered off your steroids. The speech problem did resolve. You had a CT of the head. There is no tumor, hemorrhage, or stroke. An angiogram which is a dye study of the circulation of your brain is normal. And a follow- up MRI was normal. You asked to be discharged before an echocardiogram could be done. I do not think it is going to change the management of your disease status and I think it is reasonable for you to go home. Plan of Treatment: 1. If you can tolerate it, and have no allergy, start a baby aspirin a day. 2. See Dr. Zavala, your primary care provider in the next 1 to 2 weeks. 3. See your neurologist in the next month to follow-up on myasthenia gravis and whether you needed to come back on your medications again. You have been tapered off your Deltasone over the last few weeks. Care Goals: To reduce your risk of stroke, and to manage the myasthenia gravis so that you remain relatively asymptomatic Assessment: Patient is enthusiastic about following through on his care goals as long as I can send him home early No Smoking: If you smoke, Please STOP! Call for help. Follow-up with: Jose Ann MD [Primary Care Provider] -
[2021-08-13 19:08] VITALS: BP 128/80
--- NOTE | 2021-08-15 12:26 | DISCHARGE SUMMARY ---
"Discharge Summary Admit Date: 08/13/21 Discharge Date: 08/13/21 Condition at Discharge: Stable Discharge Disposition: 01 Home, Self Care - DIAGNOSES Discharge Diagnoses with Status of Each Condition: 1. Transient verbal apraxia 2. Ocular myasthenia gravis 3. Anxiety - HPI History of Present Illness: See detailed history and physical done on admission a few hours ago - CONSULTS | PROCEDURES Procedures: CT of head, CT angiogram of head and neck, MRI of the head did not show any new subacute or acute lesions - HOSPITAL COURSE Hospital Course: The patient had already undergone CT of the head with angiogram of head and neck which showed no acute or subacute infarction. Telemetry, for the short time he was here, had no arrhythmia. MRI was done and was an excellent image quality. He had no findings of acute or subacute infarction. Age-appropriate brain parenchymal volume loss and chronic small vessel ischemic changes. Paranasal sinus disease noted most prominent in the right maxillary sinus. The patient asked to go home. He felt that he had recovered from what ever event that was giving him word problems. He was very specific about his work problems. He said that he could not pronounce a good friend's name and it took him forever to be able to pronounce it. That was the only deficit he was experiencing. As such I think there is a high component of anxiety, and intermittent symptomatic ocular myasthenia gravis in play here. I have asked him to follow-up with his primary care provider, and to follow-up with his neurologist. He shared with me that he hates being on the medication for ocular myasthenia; I asked him to share that with his neurologist. He is discharged in stable condition. Has a slight left lid lag. Otherwise no other focal neurological deficit seen with strength testing, reflexes, gait. He is alert, oriented, speech normal and word finding and sentence structure normal. - ALLERGIES Allergies/Adverse Reactions: Allergies Allergy/AdvReac Type Severity Reaction Status Date / Time indomethacin Allergy Mild Hives Verified 08/13/21 11:43 sulfamethoxazole Allergy Rash Verified 08/13/21 11:43 [From Bactrim] trimethoprim [From Bactrim] Allergy Rash Verified 08/13/21 11:43 - MEDICATIONS Home Medications: Ambulatory Orders Medication Instructions Recorded Confirmed predniSONE [Prednisone] 5 mg PO DAILY 10/22/15 07/13/17 Omeprazole [PriLOSEC] 20 mg PO DAILY 07/10/17 07/13/17 - LABS Result Diagrams: 08/13/21 12:48 08/13/21 12:48"
== END 2021-08-13 19:09 | disposition home or self-care (01) ==
LOC: ED 11:27 → MS2 15:09
PROVIDERS: ADMIT Specialist; ATTEND Specialist
DX: R48.2 Apraxia (principal); G70.00 Myasthenia gravis without (acute) exacerbation; F41.9 Anxiety disorder, unspecified; I72.3 Aneurysm of iliac artery; E78.00 Pure hypercholesterolemia, unspecified; Z20.822 Contact with and (suspected) exposure to COVID-19; Z87.891 Personal history of nicotine dependence
CPT/HCPCS: 36415; 70496; 70498; 70551; 80053; 83690; 85025; 87631; 93005; 99284; 99285; A9270; G0378; Q9967; 0202U

== ENCOUNTER 2021-11-01 08:35 | Outpatient (CLI) | payer MEDICARE, OTHER | END 2021-11-01 08:36 | disposition home or self-care (01) | LOC: DI 08:35 | PROVIDERS: ATTEND Family Medicine | DX: Z86.73 Personal history of transient ischemic attack (TIA), and cerebral infarction without residual deficits (principal) | CPT/HCPCS: 93306 ==

== ENCOUNTER 2022-03-28 07:32 | Outpatient (CLI) | payer MEDICARE, OTHER ==
[2022-03-28 12:34] LABS: CHOL/HDL RATIO 3.1 (<5.0); CHOLESTEROL 129 mg/dL; HDL CHOLESTEROL 42 mg/dL; LDL CHOLESTEROL,CALCULATED 71 mg/dL; LDL/HDL RATIO 1.7 (<3.6); TRIGLYCERIDES 79 mg/dL; VLDL CHOLESTEROL 16 mg/dL
== END 2022-03-28 07:33 | disposition home or self-care (01) ==
LOC: LAB.N 07:32
PROVIDERS: ATTEND Family Medicine
DX: E78.5 Hyperlipidemia, unspecified (principal)
CPT/HCPCS: 36415; 80061; 83721

== ENCOUNTER 2022-12-11 14:48 | Outpatient (CLI) | payer MEDICARE, OTHER | END 2022-12-11 14:49 | disposition home or self-care (01) | LOC: MAC.MOP 14:48 | PROVIDERS: ATTEND Family Medicine | DX: R00.2 Palpitations (principal) | CPT/HCPCS: 93242 ==

== ENCOUNTER 2022-12-28 10:30 | Outpatient (CLI) | payer MEDICARE, OTHER | END 2022-12-28 10:31 | disposition home or self-care (01) | LOC: MAC.INF 10:30 | PROVIDERS: ATTEND Family Medicine | DX: I47.1 Supraventricular tachycardia (principal); I49.1 Atrial premature depolarization; I49.3 Ventricular premature depolarization | CPT/HCPCS: 93244 ==

== ENCOUNTER 2022-12-31 07:09 | Outpatient (CLI) | payer MEDICARE, OTHER ==
[2022-12-31 11:50] LABS: BASOPHILS % (AUTO) 0.5 %; EOSINOPHILS # (AUTO) 0.3 10^3/uL (0.0-0.7); EOSINOPHILS % (AUTO) 3.2 %; HCT - HEMATOCRIT 48.2 % (42.0-52.0); HGB - HEMOGLOBIN 15.4 g/dL (14.0-18.0); LYMPHOCYTES # (AUTO) 2.7 10^3/uL (1.5-3.5); LYMPHOCYTES % (AUTO) 34.2 %; MEAN CORPUSCULAR HEMOGLOBIN 30.6 pg (27.0-31.0); MEAN CORPUSCULAR VOLUME 95.8 fL (80.0-94.0); MEAN PLATELET VOLUME 10.2 fL (7.4-11.4); MONOCYTES # (AUTO) 0.6 10^3/uL (0.0-1.0); MONOCYTES % (AUTO) 7.1 %; NEUTROPHILS # (AUTO) 4.4 10^3/uL (1.5-6.6); NEUTROPHILS % (AUTO) 54.3 %; PLT - PLATELET COUNT 243 10^3/uL (130-450); RED BLOOD COUNT 5.03 10^6/uL (4.70-6.10); RED CELL DISTRIBUTION WIDTH 13.2 % (12.0-15.0)
[2022-12-31 12:23] LABS: ALBUMIN 4.1 g/dL (3.2-5.5); ALBUMIN/GLOBULIN RATIO 1.5 (1.0-2.2); ALKALINE PHOSPHATASE 51 IU/L (42-121); ALT ALANINE AMINOTRANSFERASE 19 IU/L (10-60); AST ASPARTATE AMINOTRANSFERASE 21 IU/L (10-42); BILIRUBIN,TOTAL 1.1 mg/dL (0.2-1.0); BUN - BLOOD UREA NITROGEN 22 mg/dL (6-20); CALCIUM 8.3 mg/dL (8.5-10.3); CARBON DIOXIDE - CO2 28 mmol/L (21-32); CHLORIDE 110 mmol/L (101-111); CHOLESTEROL 131 mg/dL; GFR - MDRD 74 (>89); GLUCOSE 100 mg/dL (70-100); HDL CHOLESTEROL 44 mg/dL; LDL CHOLESTEROL,CALCULATED 67 mg/dL; LDL/HDL RATIO 1.5 (<3.6); POTASSIUM 3.8 mmol/L (3.5-5.0); SODIUM 143 mmol/L (135-145); TOTAL PROTEIN 6.8 g/dL (6.7-8.2); TRIGLYCERIDES 100 mg/dL; VLDL CHOLESTEROL 20 mg/dL
[2022-12-31 12:25] LABS: THYROID STIMULATING HORMONE 1.05 uIU/mL (0.34-5.60)
[2022-12-31 12:55] LABS: ESTIMATED AVERAGE GLUCOSE 108 mg/dL (70-100); HEMOGLOBIN A1c% 5.4 % (4.27-6.07)
== END 2022-12-31 07:10 | disposition home or self-care (01) ==
LOC: LAB.N 07:09
PROVIDERS: ATTEND Family Medicine
DX: G70.00 Myasthenia gravis without (acute) exacerbation (principal); R00.2 Palpitations; R13.10 Dysphagia, unspecified; G47.9 Sleep disorder, unspecified; Z12.5 Encounter for screening for malignant neoplasm of prostate; K21.9 Gastro-esophageal reflux disease without esophagitis; R73.01 Impaired fasting glucose
CPT/HCPCS: 36415; 80053; 80061; 83036; 84443; 85025; G0103; 83721; 84153

== ENCOUNTER 2023-03-24 07:07 | Outpatient (CLI) | payer MEDICARE, OTHER | END 2023-03-24 07:08 | disposition home or self-care (01) | LOC: LAB.N 07:07 | PROVIDERS: ATTEND Psychiatry & Neurology Neuromuscular Medicine | DX: G70.00 Myasthenia gravis without (acute) exacerbation (principal) | CPT/HCPCS: 81599; 83519; 86255 ==

== ENCOUNTER 2023-03-30 14:27 | Outpatient (CLI) | payer MEDICARE, OTHER ==
--- NOTE | 2023-03-31 15:48 | CT Report ---
PROCEDURE: CHEST WO INDICATIONS: MYASTHENIA GRAVIS TECHNIQUE: Noncontrast 1mm axial images were acquired from the pulmonary apices to the posterior costophrenic an gles. Axial 5 mm soft tissue kernel reconstructions were performed as well as 8 mm axial MIP and cor onal and sagittal 5 mm reformations. For radiation dose reduction, the following was used: automate d exposure control, adjustment of mA and/or kV according to patient size. COMPARISON: CT chest 10/21/2013 FINDINGS: Image quality: Excellent. Lungs and pleura: No consolidation. No pleural effusions. No pneumothorax. No suspicious pulmonary n odules which require follow up. Mediastinum: Heart size is normal. Trace pericardial effusion. No large vessel abnormality. No medias tinal adenopathy by size criteria. Chest wall and lower neck: Thyroid is unremarkable. No axillary or supraclavicular adenopathy by size . Bones: No aggressive osseous abnormality. Upper Abdomen: Unremarkable. IMPRESSION: Stable interval exam. No visualized thymoma. Reviewed by: Neha Stafford MD on 03/31/2023 3:27 PM PDT Approved by: Neha Stafford MD on 03/31/2023 3:27 PM PDT Station ID: [id number]
== END 2023-03-30 14:28 | disposition home or self-care (01) ==
LOC: DI 14:27
PROVIDERS: ATTEND Psychiatry & Neurology Neuromuscular Medicine
DX: G70.00 Myasthenia gravis without (acute) exacerbation (principal)

== ENCOUNTER 2024-01-19 07:05 | Outpatient (CLI) | payer MEDICARE, OTHER ==
[2024-01-19 12:15] LABS: BASOPHILS # (AUTO) 0.1 10^3/uL (0.0-0.1); BASOPHILS % (AUTO) 0.6 %; EOSINOPHILS # (AUTO) 0.2 10^3/uL (0.0-0.7); EOSINOPHILS % (AUTO) 2.4 %; HCT - HEMATOCRIT 46.3 % (42.0-52.0); HGB - HEMOGLOBIN 14.5 g/dL (14.0-18.0); LYMPHOCYTES # (AUTO) 2.7 10^3/uL (1.5-3.5); MEAN CORPUSCULAR HGB CONC 31.3 g/dL (32.0-36.0); MEAN CORPUSCULAR VOLUME 95.7 fL (80.0-94.0); MEAN PLATELET VOLUME 10.3 fL (7.4-11.4); MONOCYTES # (AUTO) 0.6 10^3/uL (0.0-1.0); MONOCYTES % (AUTO) 7.4 %; NEUTROPHILS # (AUTO) 4.5 10^3/uL (1.5-6.6); NEUTROPHILS % (AUTO) 56.2 %; PLT - PLATELET COUNT 217 10^3/uL (130-450); RED BLOOD COUNT 4.84 10^6/uL (4.70-6.10); RED CELL DISTRIBUTION WIDTH 13.2 % (12.0-15.0); WHITE BLOOD COUNT 8.1 x10^3/uL (4.8-10.8)
[2024-01-19 12:39] LABS: CHOL/HDL RATIO 2.9 (<5.0); CHOLESTEROL 129 mg/dL; HDL CHOLESTEROL 44 mg/dL; LDL CHOLESTEROL,CALCULATED 64 mg/dL; LDL/HDL RATIO 1.5 (<3.6); TRIGLYCERIDES 107 mg/dL (48-352); VLDL CHOLESTEROL 21 mg/dL
[2024-01-19 12:54] LABS: THYROID STIMULATING HORMONE 1.39 uIU/mL (0.34-5.60)
== END 2024-01-19 07:06 | disposition home or self-care (01) ==
LOC: LAB.N 07:05
PROVIDERS: ATTEND Family Medicine
DX: I73.9 Peripheral vascular disease, unspecified (principal); R49.0 Dysphonia; Z12.5 Encounter for screening for malignant neoplasm of prostate; Z86.79 Personal history of other diseases of the circulatory system
CPT/HCPCS: 36415; 80061; 84443; 85025; G0103; 83721; 84153

== ENCOUNTER 2024-05-16 08:30 | Outpatient (CLI) | payer MEDICARE, OTHER ==
--- NOTE | 2024-05-16 11:37 | XRAY Report ---
PROCEDURE: Lumbar Spine 2-3V INDICATIONS: LOW BACK PAIN UNSPECIFIED TECHNIQUE: 2 views of the lumbar spine were acquired. COMPARISON: 01/12/2015 FINDINGS: Bones: Mild to moderate degenerative changes with osteophytes, disc space height loss, and facet arth ropathy. Findings are worse at L4-S1. Soft tissues: No suspicious calcifications. IMPRESSION: Mild to moderate degenerative changes progressed from 2015. If there is high concern for further dera ngement, consider MRI evaluation. Reviewed by: Eusebio Ruvalcaba MD on 05/16/2024 11:36 AM PDT Approved by: Eusebio Ruvalcaba MD on 05/16/2024 11:36 AM PDT Station ID: [id number]
== END 2024-05-16 08:45 | disposition home or self-care (01) ==
LOC: DI.N 08:30
PROVIDERS: ATTEND Physician Assistant
DX: M47.816 Spondylosis without myelopathy or radiculopathy, lumbar region (principal)

== ENCOUNTER 2024-06-01 08:54 | Outpatient (CLI) | payer MEDICARE, OTHER ==
--- NOTE | 2024-06-01 09:54 | Sleep Patient Instructions ---
Sleep Center Visit Summary - Patient Visit Information Reason for Visit: Initial consultation - Patient Instructions Additional Instructions: You will be completing a sleep study, either an in-lab polysomnography (PSG) or home sleep study (HST). You will follow-up in the sleep care office after the sleep study is completed to hear the results and talk about therapy, if needed. You will be called by our office staff to schedule this appointment, but you may contact us with any questions. - Clinic Information Contact: [facility] [address] [place] [address] [email or web address] T: [phone]
--- NOTE | 2024-06-01 09:56 | SLEEP CARE CONSULTATION ---
Information from patient questionnaire entered by Vianca Harrington. I have reviewed and concur with the information entered by Vianca Harrington. This document represents the service I personally performed and the decisions made by me, Devi Kendall ARNP. History of Present Illness Service Date and Time: 06/01/2024 0854 Reason for Visit: New patient, Previously diagnosed sleep apnea Chief Complaint: reports: Excessive daytime sleepiness, Frequent awakenings at night Date of Onset: 15 years Usual bedtime: 9:30 PM Time it takes to fall asleep: 10 min Snores at night: No Observed to quit breathing while asleep: No Sleeps alone due to snoring: No Number of times waking at night: 4 or 5 Reasons for waking at night: reports: Other (Unknown reason). denies: Choking, Gasping for air Toss, Turn, or Twitch while sleeping: No Recalls having dreams: No Usually gets out of bed at: 6 AM Feels refreshed in the morning: No Morning headache: No Sleepy or fatigued during the day: Yes Ever fallen asleep while driving: No Takes day naps: Yes (2-3 times a week, for about 30 mins) Dreams during day naps: No Prior sleep studies: Yes Year and Where: 2016 [place] Additional HPI information: I had the pleasure of seeing NADER MUSE today regarding the possibility of him having a sleep disorder. His current complaints are daytime sleepiness and frequent night awakenings. Patient was last seen here in 2017. He was diagnosed with mild obstructive sleep apnea on 10/25/2016 with an AHI of 6.4. He returns today for further evaluation. He is not able to sleep through the night and will wake up frequently for unknown reason. He has woke up feeling like his heart if racing but denies choking or gasping for air. He says his mouth is very dry in the morning. He mostly sleeps on his side. His always made him sleep on his side to reduce snoring but he says there is no complaints of snoring from her. - Parasomnia Symptoms Ever been unable to move upon waking from sleep: No Walks in sleep: No Talks in sleep: No Ever acted out dreams in sleep: No Ever felt weak in the knees when startled or emotional: No Bothered by creepy, crawly, restless sensations in legs: No Problems with memory or concentration: No Subjective Initial [place] Sleepiness Scale score: 7 (06/01/24) Past Medical History Past Medical History: reports: GERD, Other (Ocular myasthenia gravis; difficulty swallowing-improved over year) Social History The patient is retired. Patient is and lives in [place]. Have you smoked in the past 12 months: No Cigarettes per day (20/pack): 5 Years of smokin Quit date: 2014 Smoking Pack Years: 2.0 Alcohol use: No Caffeine use: Yes Caffeine amount and frequency: Coffee - 4 cups a day Family History Family history of sleep disordered breathing: No Allergies and Home Medications Known drug allergies: Yes (as listed) Drug allergies reviewed: Yes Home medication list reviewed: Yes (as listed) Allergy and home medication list: Allergies indomethacin Allergy (Mild, Verified 06/01/24 09:41) Hives sulfamethoxazole [From Bactrim] Allergy (Verified 06/01/24 09:41) Rash trimethoprim [From Bactrim] Allergy (Verified 06/01/24 09:41) Rash Home Medications predniSONE [Prednisone] 5 mg PO DAILY 10/22/15 [History] Omeprazole [PriLOSEC] 20 mg PO DAILY 07/10/17 [History] Atorvastatin See Rx Instructions .ROUTE .COMPLEX 06/01/24 [History] Gabapentin 100 mg ORAL TID 06/01/24 [History] Ibuprofen See Rx Instructions .ROUTE .COMPLEX 06/01/24 [History] Review of Systems Weight gain over past 5 years: 5 Cardiovascular: reports: palpitations Gastrointestinal: reports: heartburn, difficulty swallowing Neurological: reports: gait or balance problems. denies: headaches Psychiatric: denies: anxiety, depression Ear/Nose/Throat: reports: nasal congestion, dry mouth/throat. denies: tonsillectomy Musculoskeletal: reports: back pain Physical Exam Vital signs obtained and entered by: Devi Perknis NP Blood Pressure: 135/84 Cuff size: long (right arm) Heart Rate: 64 O2 Saturation: 96 Height: 6 ft 1 in Weight: 202 lb Body Mass Index: 26.6 BMI Classification: Overweight Neck circumference: 16.5 Mouth and throat: narrow oropharynx Soft palate: long Hard palate: normal Uvula: normal Uvula visualization: 25% Mallampati Class III Tongue: enlarged in size with teeth ohara on lateral edges Tonsils: small Neck: normal w/o lymphadenopathy or thyromegaly Heart: regular rate and rhythm Lungs: clear bilaterally Impression and Plan 1. 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 I recommend proceeding to polysomnography to confirm the diagnosis and to assess severity. If the patient has significant sleep disordered breathing, a manual CPAP titration study will also be performed to find the optimal treatment pressure. I informed the patient of what the sleep studies involve and after some discussion, obtained agreement to proceed. The pathophysiology of obstructive sleep apnea-hypopnea syndrome was discussed with the patient and health risks of cardiovascular and cerebrovascular disease if not treated. 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 Patient agreed to plan. * Schedule polysomnography * Avoid long distance driving or driving when feeling sleepy. * Avoid alcohol, sedative and muscle relaxant around bedtime. * Attempt to lose weight. * Review instructions provided by trained office staff on how to prepare for the sleep study. * Return for follow-up after sleep study completed. Counseling Topics: Weight loss health impact Plan: sleep study and follow up Visit Type: In Office Time Spent with Patient (minutes): 32 Provider Statement: I spent 100% of the Face to Face Visit with the patient with greater than 50% spent counseling the patient and coordination of care.
[2024-06-01 10:02] VITALS: BP 135/84; O2SAT 96
== END 2024-06-01 08:55 | disposition home or self-care (01) ==
LOC: SC 08:54
PROVIDERS: ATTEND Nurse Practitioner Family
DX: G47.10 Hypersomnia, unspecified (principal); G47.8 Other sleep disorders; E66.3 Overweight; Z68.26 Body mass index [BMI] 26.0-26.9, adult; Z87.891 Personal history of nicotine dependence
CPT/HCPCS: 99203; G0463; 99212